=== PATIENT | male | born 1955 | race Caucasian/White ===

== ENCOUNTER 2020-10-02 12:50 | Day surgery (SDC) | payer MEDICARE, OTHER ==
[~2020-10-02] VITALS: Ht 175.3 cm; Wt 104.8 kg
[2020-10-02 14:11] VITALS: BP 133/94; PULSE 107; TEMP 98
[2020-10-02] MEDS ORDERED: CIPRO 500MG TA500 MG PO (14:45)
[2020-10-02] MEDS ORDERED: PERCOCET 325 MG1 TA2 PO (14:45)
[2020-10-02] MEDS ORDERED: VENTOLIN0.09 MG IH (14:48)
[2020-10-02] MEDS ORDERED: AMITRIPTYLINE H50 M1 PO (14:49)
[2020-10-02] MEDS ORDERED: ASPIRIN 81M81 MG/TA2 PO (14:50)
[2020-10-02] MEDS ORDERED: WELLBUTRIN XL300 M1 PO (14:51)
[2020-10-02] MEDS ORDERED: PERIDEX (CHLOR480 ML MM (14:52)
[2020-10-02] MEDS ORDERED: MASON NATURAL2000 IU PO (14:53)
[2020-10-02] MEDS ORDERED: TYLENOL W/COD1 UDTAB PO (14:53)
[2020-10-02] MEDS ORDERED: FLEXERIL 1010 MG/TAB PO (14:55)
[2020-10-02] MEDS ORDERED: LODINE500 MG PO (14:57)
[2020-10-02] MEDS ORDERED: ZYPREXA20 MG PO (14:58)
[2020-10-02] MEDS ORDERED: CRESTOR40 MG PO ×2 (14:59→15:00)
[2020-10-02] MEDS ORDERED: CHANTIX 1MG1 MG PO (15:01)
[2020-10-02] MEDS ORDERED: SPIRIVA RE2.5 MCG/Ac IH (15:01)
[2020-10-02] MEDS ORDERED: VERAPAMIL180 MG/TAB PO (15:02)
[2020-10-02 16:31] VITALS: TEMP 98.1
[2020-10-02 16:45] VITALS: BP 144/79; PULSE 104
--- NOTE | 2020-10-02 16:45 | NUR ---
Returns to room 2 per cart from PACU accompanied by Blessing NOEL and is awake and alert. Temp 97.8 and room air sats 93%. Denies pain or nausea. Siderails up x2 and call light in reach. Spouse in room. IV fluids infusing. Site is free of redness.
[2020-10-02 17:00] VITALS: BP 148/70; PULSE 102
--- NOTE | 2020-10-02 17:00 | NUR ---
Eating vanilla and chocolate pudding. Continues to deny pain or nausea.
[2020-10-02 17:15] VITALS: BP 145/87; PULSE 96
--- NOTE | 2020-10-02 17:15 | NUR ---
Drinking water and denies nausea. Spouse remains in the room.
--- NOTE | 2020-10-02 17:20 | NUR ---
IV to INT and assisted up to the bathroom. Gait steady. Patient voids and returns to room.
--- NOTE | 2020-10-02 17:28 | NUR ---
INT needle discontinued and site is free of redness. Given dismissal instructions and voices understanding of these.
--- NOTE | 2020-10-02 17:30 | NUR ---
Patient dismissed to home driven by spouse and taken to the front door per wheelchair and assisted into vehicle with instructions in hand.
== END 2020-10-02 17:30 | disposition home or self-care (01) ==
LOC: SDCO 12:50
DX: N20.1 Calculus of ureter (principal); I10 Essential (primary) hypertension; E78.5 Hyperlipidemia, unspecified; J44.9 Chronic obstructive pulmonary disease, unspecified; G47.33 Obstructive sleep apnea (adult) (pediatric); C18.1 Malignant neoplasm of appendix; F43.10 Post-traumatic stress disorder, unspecified; F32.9 Major depressive disorder, single episode, unspecified; F84.0 Autistic disorder; F41.9 Anxiety disorder, unspecified; Z90.89 Acquired absence of other organs; Z99.89 Dependence on other enabling machines and devices; Z98.52 Vasectomy status; Z79.899 Other long term (current) drug therapy; M19.90 Unspecified osteoarthritis, unspecified site
CPT/HCPCS: C1769; J0690; J1100; J1885; J2405; J2704; J3010; J7120; Q9967